=== PATIENT | female | born 2005 | race Hispanic/Latino ===

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

== ENCOUNTER 2024-01-27 16:46 | Emergency (ER) | payer OTHER ==
[2024-01-27 17:31] LABS: Bilirubin Negative (Negative); Blood, Urine Negative (Negative); Glucose, Urine (Dipstick) Negative (Negative); Ketone, Urine Negative (Negative); Leukocyte Small (Negative); Nitrite Negative (Negative); Protein, Urine (Dipstick) Negative (Neg-Trace); Urobilinogen 0.2 mg/dL (Less than 2); pH, Urine 6.5 (5.0-9.0)
[2024-01-27 17:32] LABS: Pregnancy Test - Urine (BHCG) POSITIVE (Negative); Pregu Control Background? CLEAR/WHITE (CLR/WHITE); Pregu Control Bar Appear? YES (CONTROL BAR)
[2024-01-27 17:33] LABS: Clarity Clear (Clear)
[2024-01-27 17:38] LABS: Bacteria/HPF Rare-Few HPF (None Seen); CAUTI Indications for Culture Fever or rigors; RBC/HPF 0-3 HPF (0-3)
[2024-01-27 17:39] LABS: Urine Culture Reflex Yes Yes
[2024-01-27 18:26] LABS: Influenza A by NAA Not Detected (NotDetected); Influenza B by NAA Not Detected (NotDetected); SARS-CoV-2 NAA Rapid Test Not Detected (NotDetected)
[2024-01-27] MEDS ORDERED: cefTRIAXone (ROCEPHIN) 1 GM VIAL ONE (19:01)
[2024-01-27] MEDS ORDERED: Lidocaine 1% PF 5 ML VIAL ONE (19:01)
== END 2024-01-27 19:32 | disposition home or self-care (01) ==
LOC: MADERS 16:46
DX: O99.891 Other specified diseases and conditions complicating pregnancy (principal); R50.9 Fever, unspecified; Z3A.18 18 weeks gestation of pregnancy
CPT/HCPCS: 81001; 81025; 87086; 93005; 96372; J0696

== ENCOUNTER 2024-03-10 23:34 | Emergency (ER) | payer MEDICAID ==
[2024-03-11 00:16] LABS: #Basophils 0.1 thou/uL (0.0-0.2); #Eosinphils 0.4 thou/uL (0.0-0.7); #Lymphocytes 2.7 thou/uL (1.20-3.40); #Monocytes 0.9 thou/uL (0.11-0.59); #Neutrophils 8.5 thou/uL (1.40-6.50); %Basophils 0.7 % (0.0-1.0); %Eosinophils 3.2 % (0.0-10.0); %Lymphocytes 21.7 % (28.0-48.0); %Monocytes 6.9 % (0.0-4.0); %Neutrophils 67.6 % (31.0-61.0); Hemoglobin 11.6 g/dL (12.0-16.0); Mean Corpuscular HGB CONC 33.1 g/dL (32.0-36.0); Mean Corpuscular Hemoglobin 29.2 pg (25.0-35.0); Mean Corpuscular Volume 88.4 fl (78.0-98.0); Mean Platelet Volume 8.4 fL (7.4-10.4); Platelet Count 174 10x3/uL (130-400); RBC Distribution Width 12.3 % (11.5-14.5); Red Blood Cell (RBC) Count 3.96 mill/uL (4.00-5.20); White Blood Cell (WBC) Count 12.6 10x3/uL (4.8-10.8)
[2024-03-11 00:20] LABS: Bilirubin Negative (Negative); Blood, Urine Negative (Negative); Clarity Clear (Clear); Glucose, Urine (Dipstick) Negative (Negative); Ketone, Urine Negative (Negative); Leukocyte Negative (Negative); Nitrite Negative (Negative); Protein, Urine (Dipstick) Negative (Neg-Trace); pH, Urine 6.5 (5.0-9.0)
[2024-03-11 00:21] LABS: Bacteria/HPF Rare-Few HPF (None Seen); CAUTI Indications for Culture Pregnancy; RBC/HPF 0-3 HPF (0-3); WBC/HPF 0-3 HPF (0-3)
[2024-03-11 00:22] LABS: Urine Culture Reflex Yes Yes
[2024-03-11 00:33] LABS: ALT (SGPT) 15 U/L (8-55); AST (SGOT) 19 U/L (5-30); Albumin 3.4 g/dL (3.5-5.0); Alkaline Phosphatase 83 U/L (40-100); Anion Gap 15 mmol/L (10-20); BUN (Urea Nitrogen) 6 mg/dL (8.4-21.0); Bilirubin, Total 0.2 mg/dL (0.2-1.2); Calc. Creatinine Clearance 0 mL/min (70-130); Calcium 9.2 mg/dL (7.8-10.44); Carbon Dioxide 20 mmol/L (22-29); Chloride 106 mmol/L (98-107); Estimated GFR 131; Globulin 3.8 g/dL (2.4-3.5); Glucose 113 mg/dL (70-105); Potassium 3.4 mmol/L (3.5-5.1); Protein, Total 7.2 g/dL (6.0-8.3); Sodium 138 mmol/L (136-145)
== END 2024-03-11 00:45 | disposition home or self-care (01) ==
LOC: MADERS 23:34
DX: O20.0 Threatened abortion (principal); Z3A.16 16 weeks gestation of pregnancy
CPT/HCPCS: 36415; 80053; 81001; 85025; 86900; 86901; 87086; 99284

== ENCOUNTER 2024-04-05 22:04 | Emergency (ER) | payer MEDICAID, SELFPAY ==
[2024-04-05 22:40] LABS: #Basophils 0.1 thou/uL (0.0-0.2); #Eosinphils 0.6 thou/uL (0.0-0.7); #Lymphocytes 2.5 thou/uL (1.20-3.40); #Monocytes 0.7 thou/uL (0.11-0.59); #Neutrophils 9.1 thou/uL (1.40-6.50); %Basophils 0.5 % (0.0-1.0); %Eosinophils 4.6 % (0.0-10.0); %Monocytes 5.6 % (0.0-4.0); %Neutrophils 70.3 % (31.0-61.0); Hematocrit 35.8 % (36.0-47.0); Hemoglobin 11.8 g/dL (12.0-16.0); Mean Corpuscular Hemoglobin 29.1 pg (25.0-35.0); Mean Corpuscular Volume 88.1 fl (78.0-98.0); Mean Platelet Volume 10.9 fL (7.4-10.4); Platelet Count 196 10x3/uL (130-400); RBC Distribution Width 12.8 % (11.5-14.5); Red Blood Cell (RBC) Count 4.06 mill/uL (4.00-5.20); White Blood Cell (WBC) Count 12.9 10x3/uL (4.8-10.8)
[2024-04-05 22:47] LABS: Prothrombin Time 12.8 sec (12.0-14.7)
[2024-04-05 22:48] LABS: PTT 24.8 sec (22.9-36.1)
[2024-04-05 22:57] LABS: ALT (SGPT) 14 U/L (8-55); AST (SGOT) 16 U/L (5-30); Albumin 3.3 g/dL (3.5-5.0); Alkaline Phosphatase 79 U/L (40-100); Anion Gap 17 mmol/L (10-20); BUN (Urea Nitrogen) 6 mg/dL (8.4-21.0); Bilirubin, Total 0.2 mg/dL (0.2-1.2); Calc. Creatinine Clearance 0 mL/min (70-130); Carbon Dioxide 19 mmol/L (22-29); Chloride 106 mmol/L (98-107); Estimated GFR 134; Globulin 4.1 g/dL (2.4-3.5); Glucose 108 mg/dL (70-105); Potassium 3.8 mmol/L (3.5-5.1); Protein, Total 7.4 g/dL (6.0-8.3); Sodium 138 mmol/L (136-145)
[2024-04-05 23:03] LABS: Troponin I Less than 0.010 ng/mL (< 0.028)
== END 2024-04-05 23:58 | disposition short-term general hospital (02) ==
LOC: MADERS 22:04
DX: O99.891 Other specified diseases and conditions complicating pregnancy (principal); O9A.211 Injury, poisoning and certain other consequences of external causes complicating pregnancy, first trimester; R55 Syncope and collapse; Z3A.23 23 weeks gestation of pregnancy; W18.30XA Fall on same level, unspecified, initial encounter
CPT/HCPCS: 36415; 80053; 84484; 85025; 85610; 85730; 93005; 99284

== ENCOUNTER 2024-05-15 21:06 | Emergency (ER) | payer MEDICAID, OTHER, SELFPAY ==
[2024-05-15] MEDS ORDERED: Acetaminophen 500 MG TAB ONE (21:25)
== END 2024-05-15 23:54 | disposition home or self-care (01) ==
LOC: MADERS 21:06
DX: J06.9 Acute upper respiratory infection, unspecified (principal); Z72.89 Other problems related to lifestyle
CPT/HCPCS: 87400

== ENCOUNTER 2024-06-23 10:23 | Emergency (ER) | payer MEDICAID, OTHER ==
[2024-06-23 11:35] LABS: Bilirubin Negative (Negative); Blood, Urine Trace (Negative); Clarity Cloudy (Clear); Glucose, Urine (Dipstick) Negative (Negative); Ketone, Urine Negative (Negative); Leukocyte Trace (Negative); Nitrite Negative (Negative); Protein, Urine (Dipstick) Negative (Neg-Trace); Specific Gravity, Urine 1.025 (1.005-1.030); Urobilinogen 0.2 mg/dL (Less than 2); pH, Urine 6.5 (5.0-9.0)
[2024-06-23 11:39] LABS: CAUTI Indications for Culture Pelvic or flank pain; RBC/HPF 0-3 HPF (0-3); WBC/HPF 21-50 HPF (0-3)
[2024-06-23 11:40] LABS: Bacteria/HPF 4+ HPF (None Seen)
[2024-06-23 11:41] LABS: Urine Culture Reflex Yes Yes
== END 2024-06-23 12:02 | disposition home or self-care (01) ==
LOC: MADERS 10:23
DX: N39.0 Urinary tract infection, site not specified (principal); Z75.8 Other problems related to medical facilities and other health care
CPT/HCPCS: 81001; 87077; 87086; 87186; 99284

== ENCOUNTER 2025-01-30 19:28 | Emergency (ER) | payer OTHER ==
[2025-01-30] MEDS ORDERED: predniSONE 20 MG TAB ONE (19:51)
[2025-01-30] MEDS ORDERED: Ibuprofen 800 MG TAB ONE (19:52)
[2025-01-30] MEDS ORDERED: Amoxicillin/Potassium Clav 875 MG TAB ONE (19:52)
== END 2025-01-30 19:55 | disposition home or self-care (01) ==
LOC: MADERS 19:28
DX: H66.92 Otitis media, unspecified, left ear (principal); J06.9 Acute upper respiratory infection, unspecified
CPT/HCPCS: 99283; J7512

== ENCOUNTER 2025-02-26 14:28 | Emergency (ER) | payer OTHER, MEDICAID | END 2025-02-26 16:16 | disposition home or self-care (01) | LOC: MADERS 14:28 | DX: M25.562 Pain in left knee (principal) | CPT/HCPCS: 99283 ==

== ENCOUNTER 2025-03-27 19:11 | Emergency (ER) | payer OTHER, MEDICAID ==
[2025-03-27 19:43] LABS: #Basophils 0.1 thou/uL (0.0-0.2); #Eosinophils 0.3 thou/uL (0.0-0.7); #Lymphocytes 2.8 thou/uL (1.20-3.40); #Monocytes 0.4 thou/uL (0.11-0.59); #Neutrophils 4.3 thou/uL (1.40-6.50); %Basophils 0.8 % (0.0-1.0); %Eosinophils 3.2 % (0.0-10.0); %Lymphocytes 36.0 % (28.0-48.0); %Monocytes 5.0 % (0.0-4.0); %Neutrophils 55.0 % (31.0-61.0); Hematocrit 43.9 % (36.0-47.0); Hemoglobin 14.1 g/dL (12.0-16.0); Mean Corpuscular Hemoglobin 29.0 pg (25.0-35.0); Mean Corpuscular Volume 90.1 fl (78.0-98.0); Platelet Count 239 10x3/uL (130-400); Red Blood Cell (RBC) Count 4.87 mill/uL (4.00-5.20); White Blood Cell (WBC) Count 7.8 10x3/uL (4.8-10.8)
[2025-03-27] MEDS ORDERED: Ibuprofen 600 MG TAB ONE (20:05)
[2025-03-27 21:52] LABS: Glucose, Urine (Dipstick) Negative (Negative); Leukocyte Negative (Negative); Protein, Urine (Dipstick) Negative (Neg-Trace); Specific Gravity, Urine 1.015 (1.005-1.030)
[2025-03-27 21:53] LABS: Pregnancy Test - Urine (BHCG) Negative (Negative); Pregu Control Background? CLEAR/WHITE (CLR/WHITE); Pregu Control Bar Appear? YES (CONTROL BAR)
[2025-03-27 21:55] LABS: CAUTI Indications for Culture Pelvic or flank pain; RBC/HPF None Seen HPF (0-3); WBC/HPF None Seen HPF (0-3)
[2025-03-27 21:56] LABS: Urine Culture Reflex No No
== END 2025-03-27 22:17 | disposition home or self-care (01) ==
LOC: MADERS 19:11
DX: R51.9 Headache, unspecified (principal); R10.84 Generalized abdominal pain; Z75.8 Other problems related to medical facilities and other health care
CPT/HCPCS: 36415; 81001; 81025; 85025; 99284